=== PATIENT | male | born 1995 | race Caucasian/White ===

== ENCOUNTER 2018-12-26 01:41 | Emergency (ER) | payer OTHER ==
[~2018-12-26] VITALS: Ht 177.8 cm; Wt 86.4 kg
[2018-12-26] MEDS ORDERED: LORazepam 2 MG/ML VIAL IM ONE (03:15)
[2018-12-26 04:06] VITALS: BP 158/94
== END 2018-12-26 04:45 | disposition home or self-care (01) ==
LOC: EMS 01:44
DX: F11.23 Opioid dependence with withdrawal (principal); F41.9 Anxiety disorder, unspecified; F17.210 Nicotine dependence, cigarettes, uncomplicated
CPT/HCPCS: 96372; 99283; J2060

== ENCOUNTER 2019-01-19 12:10 | Emergency (ER) | payer OTHER ==
[~2019-01-19] VITALS: Ht 177.8 cm; Wt 77.3 kg
[2019-01-19 12:15] VITALS: BP 158/60
== END 2019-01-19 13:18 | disposition home or self-care (01) ==
LOC: EMS 12:10
DX: F11.10 Opioid abuse, uncomplicated (principal); F17.210 Nicotine dependence, cigarettes, uncomplicated
CPT/HCPCS: 99406